=== PATIENT | male | born 1940 | race Two or more races ===

== ENCOUNTER 2018-05-01 09:37 | Emergency (ER) | payer OTHER, MEDICARE ==
[~2018-05-01] VITALS: Ht 167.6 cm; Wt 69.3 kg
[2018-05-01] MEDS ORDERED: SODIUM CHLORIDE FLUSH 10ML SYR IVF ONE (10:30)
[2018-05-01] MEDS ORDERED: MECLIZINE CHEWABLE 25 MG TAB PO ONE (10:30)
[2018-05-01] MEDS ORDERED: ONDANSETRON ODT 4 MG PO ONE (10:30)
[2018-05-01 10:42] LABS: BASOPHILS # (AUTO) 0.01 x10^3/uL (0-0.1); BASOPHILS % (AUTO) 0 % (0-1); EOSINOPHILS # (AUTO) 0.13 x10^3/uL (0-0.4); EOSINOPHILS % (AUTO) 2 % (1-7); LYMPHOCYTES # (AUTO) 1.53 x10^3/uL (1-3.4); LYMPHOCYTES % (AUTO) 19 % (22-44); MD NO; MEAN CORPUSCULAR HGB CONC 33.8 g/dL (33.2-36.2); MEAN CORPUSCULAR VOLUME 88.8 fL (81-97); MEAN PLATELET VOLUME 7.9 fL (7.4-10.4); MONOCYTES # (AUTO) 0.55 x10^3/uL (0.2-0.8); MONOCYTES % (AUTO) 7 % (2-9); NEUTROPHILS # (AUTO) 5.69 x10^3/uL (1.8-6.8); NEUTROPHILS % (AUTO) 72 % (42-75); PLATELET COUNT 229 x10^3/uL (130-400); RED BLOOD COUNT 4.78 x10^6/uL (4.38-5.82); RED CELL DISTRIBUTION WIDTH 14.3 % (9.4-14.8)
[2018-05-01] MEDS ORDERED: ONDANSETRON ODT 4 MG ONE (10:48)
[2018-05-01] MEDS ORDERED: MECLIZINE CHEWABLE 25 MG TAB ONE (10:48)
[2018-05-01 10:54] LABS: ALBUMIN 3.1 g/dL (3.4-5.0); ANION GAP 5 mmol/L (5-15); CALCIUM 8.4 mg/dL (8.5-10.1); CHLORIDE 109 mmol/L (98-107); CREATININE 1.03 mg/dL (0.7-1.3)
[2018-05-01 10:58] LABS: TROPONIN I < 0.015 ng/mL (0.000-0.045)
[2018-05-01] MEDS ORDERED: SODIUM CHLORIDE 0.9% 1,000ML IVBOLUS ONE (11:00)
[2018-05-01] MEDS ORDERED: METO25TA35 PO (11:09)
[2018-05-01 11:57] VITALS: BP 129/87
[2018-05-01] MEDS ORDERED: OMNIPAQUE 350 MG/ML, 100ML BOTTLE ONE (11:57)
[2018-05-01 11:59] LABS: MICROSCOPIC NOT IND
== END 2018-05-01 13:15 | disposition home or self-care (01) ==
LOC: EDBD 12:22 → ED 12:22
DX: R42 Dizziness and giddiness (principal); R91.1 Solitary pulmonary nodule; I10 Essential (primary) hypertension; Z87.891 Personal history of nicotine dependence
CPT/HCPCS: 36415; 71045; 71260; 80048; 81003; 82040; 83880; 84484; 85025; 93005; 96360; 99285; J7030; Q0162; Q9967

== ENCOUNTER 2018-05-25 16:40 | Emergency (ER) | payer MEDICARE, OTHER ==
[~2018-05-25] VITALS: Ht 172.7 cm; Wt 71.6 kg
[~2018-05-25 16:40] MED LIST: METO25TA35 PO
[2018-05-25 16:46] VITALS: BP 139/78
== END 2018-05-25 17:57 | disposition left against medical advice (07) ==
LOC: ED 17:19
DX: R42 Dizziness and giddiness (principal); I10 Essential (primary) hypertension; M19.90 Unspecified osteoarthritis, unspecified site
CPT/HCPCS: 99281